=== PATIENT | female | born 1945 | race Hispanic/Latino ===

== ENCOUNTER 2018-05-03 13:03 | Outpatient (CLI) | payer MEDICARE | END 2018-05-03 13:04 | disposition home or self-care (01) | LOC: BICMAMMO 13:03 | PROVIDERS: ATTEND Family Medicine | DX: Z12.31 Encounter for screening mammogram for malignant neoplasm of breast (principal); R92.1 Mammographic calcification found on diagnostic imaging of breast | CPT/HCPCS: 77063; 77067 ==

== ENCOUNTER 2018-06-22 11:15 | Outpatient (CLI) | payer MEDICARE | END 2018-06-22 11:16 | disposition home or self-care (01) | PROVIDERS: ATTEND Internal Medicine | DX: I69.391 Dysphagia following cerebral infarction (principal); R63.3 Feeding difficulties | CPT/HCPCS: 74230; G8996-GN-CK; G8997-GN-CK ==

== ENCOUNTER 2023-06-07 18:31 | Inpatient (IN) | payer OTHER ==
[~2023-06-07 18:31] MED LIST: Iopamidol-370 76% 500 ML MDV (1 ML CHARGE) ONE
[2023-06-07 19:43] LABS: #Eosinphils 0.2 thou/uL (0.0-0.7); #Monocytes 0.7 thou/uL (0.11-0.59); #Neutrophils 5.7 thou/uL (1.40-6.50); %Basophils 0.5 % (0.0-1.0); %Eosinophils 1.8 % (0.0-10.0); %Lymphocytes 21.8 % (21.0-51.0); %Monocytes 8.6 % (0.0-10.0); %Neutrophils 67.2 % (42.0-75.0); Hemoglobin 12.6 g/dL (12.0-16.0); Mean Corpuscular HGB CONC 31.5 g/dL (32.0-36.0); Mean Corpuscular Hemoglobin 29.1 pg (27.0-31.0); Mean Corpuscular Volume 92.4 fl (78.0-98.0); Mean Platelet Volume 11.4 fL (7.4-10.4); Platelet Count 229 10x3/uL (130-400); Red Blood Cell (RBC) Count 4.33 mill/uL (4.20-5.40); White Blood Cell (WBC) Count 8.4 10x3/uL (4.8-10.8)
[2023-06-07 20:06] LABS: ALT (SGPT) 13 U/L (8-55); AST (SGOT) 18 U/L (5-34); Albumin 3.7 g/dL (3.4-4.8); Alkaline Phosphatase 69 U/L (40-110); Anion Gap 14 mmol/L (10-20); BUN (Urea Nitrogen) 18 mg/dL (9.8-20.1); Bilirubin, Total 0.5 mg/dL (0.2-1.2); Calc. Creatinine Clearance 0 mL/min (70-130); Carbon Dioxide 24 mmol/L (23-31); Chloride 106 mmol/L (98-107); Estimated GFR 66; Globulin 2.5 g/dL (2.4-3.5); Glucose 100 mg/dL (83-110); Potassium 4.5 mmol/L (3.5-5.1); Protein, Total 6.2 g/dL (5.8-8.1); Sodium 139 mmol/L (136-145)
[2023-06-07] MEDS ORDERED: Digoxin 0.5 MG/2 ML AMP ONE ×2 (20:08→20:14)
[2023-06-07 20:11] LABS: Troponin I Less than 0.010 ng/mL (< 0.028)
[2023-06-07] MEDS ORDERED: Furosemide 100 MG/10 ML VIAL ONE (21:14)
[2023-06-07] MEDS ORDERED: Furosemide 20 MG/2 ML VIAL ONE (21:15)
[2023-06-07] MEDS ORDERED: Metoprolol Tartrate 5 MG/5 ML VIAL ONE (22:06)
[2023-06-07] MEDS ORDERED: Ondansetron ODT 4 MG TAB PO PRN (22:09)
[2023-06-07] MEDS ORDERED: Acetaminophen 325 MG TAB PO PRN (22:09)
[2023-06-07] MEDS ORDERED: Ondansetron PF 4 MG/2 ML Vial IVP PRN (22:09)
[2023-06-07 23:05] VITALS: BMI 33.5
[2023-06-07] MEDS ORDERED: Amiodarone 150 MG, Admixture Fee 1 EACH in Dextrose 5% in Water 100 ML IVPB SCH (23:15)
[2023-06-08] MEDS: Amiodarone 450 MG in Dextrose 5% in Water 250 ML IVPB SCH ×2 (05:04→12:03)
[2023-06-08] MEDS: Furosemide 20 MG/2 ML VIAL SLOW IVP SCH ×2 (05:52→15:40)
[2023-06-08 07:40] LABS: #Monocytes 0.6 thou/uL (0.11-0.59); #Neutrophils 8.4 thou/uL (1.40-6.50); %Basophils 0.2 % (0.0-1.0); %Eosinophils 0.1 % (0.0-10.0); %Lymphocytes 9.8 % (21.0-51.0); %Monocytes 6.1 % (0.0-10.0); %Neutrophils 82.9 % (42.0-75.0); Hematocrit 42.5 % (36.0-47.0); Hemoglobin 13.4 g/dL (12.0-16.0); Mean Corpuscular HGB CONC 31.5 g/dL (32.0-36.0); Mean Corpuscular Hemoglobin 28.8 pg (27.0-31.0); Mean Corpuscular Volume 91.4 fl (78.0-98.0); Mean Platelet Volume 11.7 fL (7.4-10.4); Platelet Count 234 10x3/uL (130-400); RBC Distribution Width 14.1 % (11.5-14.5); Red Blood Cell (RBC) Count 4.65 mill/uL (4.20-5.40); White Blood Cell (WBC) Count 10.1 10x3/uL (4.8-10.8)
[2023-06-08 08:04] LABS: Anion Gap 16 mmol/L (10-20); BUN (Urea Nitrogen) 18 mg/dL (9.8-20.1); Calc. Creatinine Clearance 69 mL/min (70-130); Carbon Dioxide 26 mmol/L (23-31); Chloride 102 mmol/L (98-107); Estimated GFR 67; Glucose 131 mg/dL (83-110); Potassium 4.4 mmol/L (3.5-5.1); Sodium 140 mmol/L (136-145)
[2023-06-08] MEDS ORDERED: Metoprolol Tartrate 25 MG TAB PO SCH (14:15)
[2023-06-08] MEDS: traMADol HCl 50 MG TAB PO PRN (15:40)
[2023-06-08] MEDS: Gabapentin 300 MG CAP PO SCH (21:20)
[2023-06-08] MEDS: Donepezil HCl 10 MG TAB PO SCH (21:22)
[2023-06-08] MEDS: Metoprolol Tartrate 25 MG TAB PO SCH (21:22)
[2023-06-08] MEDS: Atorvastatin Calcium 40 MG TAB PO SCH (21:22)
[2023-06-09] MEDS: Amiodarone 450 MG in Dextrose 5% in Water 250 ML IVPB SCH ×2 (03:50→18:21)
[2023-06-09 04:10] LABS: #Eosinphils 0.2 thou/uL (0.0-0.7); #Monocytes 0.8 thou/uL (0.11-0.59); #Neutrophils 4.7 thou/uL (1.40-6.50); %Basophils 0.2 % (0.0-1.0); %Eosinophils 2.2 % (0.0-10.0); %Lymphocytes 32.3 % (21.0-51.0); %Monocytes 9.3 % (0.0-10.0); %Neutrophils 55.8 % (42.0-75.0); Hematocrit 39.5 % (36.0-47.0); Hemoglobin 12.6 g/dL (12.0-16.0); Mean Corpuscular HGB CONC 31.9 g/dL (32.0-36.0); Mean Corpuscular Hemoglobin 29.2 pg (27.0-31.0); Mean Corpuscular Volume 91.4 fl (78.0-98.0); Mean Platelet Volume 11.5 fL (7.4-10.4); Platelet Count 222 10x3/uL (130-400); RBC Distribution Width 14.1 % (11.5-14.5); Red Blood Cell (RBC) Count 4.32 mill/uL (4.20-5.40); White Blood Cell (WBC) Count 8.4 10x3/uL (4.8-10.8)
[2023-06-09 04:35] LABS: Anion Gap 14 mmol/L (10-20); BUN (Urea Nitrogen) 18 mg/dL (9.8-20.1); Calc. Creatinine Clearance 60 mL/min (70-130); Calcium 8.4 mg/dL (7.8-10.44); Carbon Dioxide 28 mmol/L (23-31); Chloride 100 mmol/L (98-107); Estimated GFR 58; Glucose 106 mg/dL (83-110); Potassium 3.8 mmol/L (3.5-5.1); Sodium 138 mmol/L (136-145)
[2023-06-09] MEDS: Furosemide 20 MG/2 ML VIAL SLOW IVP SCH ×2 (06:14→14:00)
[2023-06-09] MEDS: Metoprolol Tartrate 25 MG TAB PO SCH ×2 (09:44→23:03)
[2023-06-09] MEDS: DULoxetine 60 MG CAP PO SCH (09:44)
[2023-06-09] MEDS: Clopidogrel Bisulfate 75 MG TAB PO SCH (09:44)
[2023-06-09] MEDS: Atorvastatin Calcium 40 MG TAB PO SCH (23:03)
[2023-06-09] MEDS: Gabapentin 300 MG CAP PO SCH (23:04)
[2023-06-09] MEDS: Donepezil HCl 10 MG TAB PO SCH (23:04)
[2023-06-10] MEDS: Furosemide 20 MG/2 ML VIAL SLOW IVP SCH ×2 (06:04→13:26)
[2023-06-10 08:36] LABS: SARS-CoV-2 NAA Rapid Test Not Detected (NotDetected)
[2023-06-10 09:07] LABS: #Monocytes 0.6 thou/uL (0.11-0.59); #Neutrophils 3.7 thou/uL (1.40-6.50); %Basophils 0.3 % (0.0-1.0); %Eosinophils 0.6 % (0.0-10.0); %Lymphocytes 30.1 % (21.0-51.0); %Monocytes 9.8 % (0.0-10.0); %Neutrophils 58.9 % (42.0-75.0); Hematocrit 40.5 % (36.0-47.0); Hemoglobin 12.9 g/dL (12.0-16.0); Mean Corpuscular HGB CONC 31.9 g/dL (32.0-36.0); Mean Corpuscular Hemoglobin 29.2 pg (27.0-31.0); Mean Corpuscular Volume 91.6 fl (78.0-98.0); Mean Platelet Volume 11.4 fL (7.4-10.4); Platelet Count 220 10x3/uL (130-400); Red Blood Cell (RBC) Count 4.42 mill/uL (4.20-5.40); White Blood Cell (WBC) Count 6.3 10x3/uL (4.8-10.8)
[2023-06-10 09:33] LABS: Anion Gap 11 mmol/L (10-20); BUN (Urea Nitrogen) 17 mg/dL (9.8-20.1); Calc. Creatinine Clearance 60 mL/min (70-130); Calcium 8.9 mg/dL (7.8-10.44); Carbon Dioxide 34 mmol/L (23-31); Chloride 95 mmol/L (98-107); Estimated GFR 56; Glucose 104 mg/dL (83-110); Potassium 4.6 mmol/L (3.5-5.1); Sodium 135 mmol/L (136-145)
[2023-06-10] MEDS: Clopidogrel Bisulfate 75 MG TAB PO SCH (10:04)
[2023-06-10] MEDS: DULoxetine 60 MG CAP PO SCH (10:04)
[2023-06-10] MEDS: Metoprolol Tartrate 25 MG TAB PO SCH ×2 (10:04→20:36)
[2023-06-10] MEDS: Amiodarone 450 MG in Dextrose 5% in Water 250 ML IVPB SCH (10:06)
[2023-06-10 10:23] LABS: Free T4 (Free Thyroxine) 1.11 ng/dL (0.70-1.48)
[2023-06-10 10:24] LABS: Thyroid Stimulating Hormone 1.3696 uIU/mL (0.35-4.94)
[2023-06-10 10:25] LABS: HIV (1/2) Antibody/Antigen Non-Reactive (NonReactive); HIV 1/2 INDEX 0.37 S/CO (<1.00)
[2023-06-10] MEDS: Amiodarone 200 MG TAB PO SCH (20:33)
[2023-06-10] MEDS: Gabapentin 300 MG CAP PO SCH (20:34)
[2023-06-10] MEDS: Atorvastatin Calcium 40 MG TAB PO SCH (20:34)
[2023-06-10] MEDS: Apixaban 5 MG TAB PO SCH (20:35)
[2023-06-10] MEDS: Donepezil HCl 10 MG TAB PO SCH (20:35)
[2023-06-10] MEDS: traMADol HCl 50 MG TAB PO PRN (20:35)
[2023-06-11] MEDS: Furosemide 20 MG/2 ML VIAL SLOW IVP SCH (05:37)
[2023-06-11] MEDS: Metoprolol Tartrate 25 MG TAB PO SCH (08:18)
[2023-06-11] MEDS: Clopidogrel Bisulfate 75 MG TAB PO SCH (08:18)
[2023-06-11] MEDS: DULoxetine 60 MG CAP PO SCH (08:18)
[2023-06-11] MEDS: Amiodarone 200 MG TAB PO SCH (08:18)
[2023-06-11] MEDS: Apixaban 5 MG TAB PO SCH (08:18)
[2023-06-11] MEDS: traMADol HCl 50 MG TAB PO PRN (11:23)
[2023-06-11 14:20] VITALS: BP 132/63; TEMP 97.8
== END 2023-06-11 13:32 | disposition home or self-care (01) | DRG 291 ==
LOC: ERS 18:31 → ERHOLD 22:07 → 2NO 06-08 03:59 → OBSVTOIN 06-08 17:20
PROVIDERS: ADMIT Internal Medicine; ATTEND Family Medicine
PROC: 5A2204Z Restoration of Cardiac Rhythm, Single (ICD-10-PCS; principal; 2023-06-10)
DX: I11.0 Hypertensive heart disease with heart failure (principal); I50.43 Acute on chronic combined systolic (congestive) and diastolic (congestive) heart failure; I48.91 Unspecified atrial fibrillation; E78.5 Hyperlipidemia, unspecified; I25.10 Atherosclerotic heart disease of native coronary artery without angina pectoris; F39 Unspecified mood [affective] disorder; I42.0 Dilated cardiomyopathy; G89.29 Other chronic pain; R91.8 Other nonspecific abnormal finding of lung field; Z20.822 Contact with and (suspected) exposure to COVID-19; Z90.710 Acquired absence of both cervix and uterus; Z98.890 Other specified postprocedural states; Z95.828 Presence of other vascular implants and grafts
CPT/HCPCS: 36415; 71045; 71275; 80048; 80053; 83735; 83880; 84439; 84443; 84481; 84484; 85025; 86618; 87040; 87389; 92960; 93005; 93010; 93306; 93312; 96372; 96374; 96375; 96376; G0378; J0282; J1160; J1650; J1940; J2405; J7070; Q0162; Q9967

== ENCOUNTER → 2023-09-27 | Day surgery (SDC) | payer OTHER ==
[2023-09-24 11:10] VITALS: BMI 35.0
[~2023-09-27] MED LIST changes: -Iopamidol-370 76% 500 ML MDV (1 ML CHARGE) ONE; +PROPOFOL 200 MG/20 ML VIAL ONE
[2023-09-27 11:21] LABS: #Eosinphils 0.1 thou/uL (0.0-0.7); #Monocytes 0.5 thou/uL (0.11-0.59); #Neutrophils 3.3 thou/uL (1.40-6.50); %Basophils 0.2 % (0.0-1.0); %Eosinophils 1.3 % (0.0-10.0); %Lymphocytes 27.1 % (21.0-51.0); %Monocytes 9.3 % (0.0-10.0); %Neutrophils 61.9 % (42.0-75.0); Hematocrit 40.1 % (36.0-47.0); Hemoglobin 12.2 g/dL (12.0-16.0); Mean Corpuscular HGB CONC 30.4 g/dL (32.0-36.0); Mean Corpuscular Hemoglobin 25.9 pg (27.0-31.0); Mean Corpuscular Volume 85.1 fl (78.0-98.0); Mean Platelet Volume 11.4 fL (7.4-10.4); Platelet Count 231 10x3/uL (130-400); RBC Distribution Width 14.8 % (11.5-14.5); Red Blood Cell (RBC) Count 4.71 mill/uL (4.20-5.40); White Blood Cell (WBC) Count 5.4 10x3/uL (4.8-10.8)
[2023-09-27 11:42] LABS: Anion Gap 10 mmol/L (10-20); BUN (Urea Nitrogen) 28 mg/dL (9.8-20.1); Calc. Creatinine Clearance 49 mL/min (70-130); Calcium 8.9 mg/dL (7.8-10.44); Carbon Dioxide 36 mmol/L (23-31); Chloride 97 mmol/L (98-107); Estimated GFR 41; Glucose 101 mg/dL (83-110); Potassium 3.9 mmol/L (3.5-5.1); Sodium 139 mmol/L (136-145)
[2023-09-27 11:44] LABS: INR-International Normal Ratio 1.4; Prothrombin Time 17.6 sec (12.0-14.7)
[2023-09-27 11:45] LABS: PTT 39.3 sec (22.9-36.1)
== END ==
LOC: SDC 09:55
PROVIDERS: ATTEND Internal Medicine Cardiovascular Disease
PROC: 5A2204Z Restoration of Cardiac Rhythm, Single (ICD-10-PCS; principal; 2023-09-27)
DX: I48.19 Other persistent atrial fibrillation (principal); I25.10 Atherosclerotic heart disease of native coronary artery without angina pectoris; I35.0 Nonrheumatic aortic (valve) stenosis; I10 Essential (primary) hypertension; I25.2 Old myocardial infarction; Z87.891 Personal history of nicotine dependence; Z88.6 Allergy status to analgesic agent; Z88.8 Allergy status to other drugs, medicaments and biological substances; Z90.710 Acquired absence of both cervix and uterus
CPT/HCPCS: 80048; 85025; 85610; 85730; 92960; 93005; 93010; J2704

== ENCOUNTER 2024-01-11 18:50 | Inpatient (IN) | payer MEDICARE, OTHER ==
[2024-01-11 19:33] LABS: #Basophils Less than 0.03 10x3/uL (0.0-0.2); #Eosinphils Less than 0.03 10x3/uL (0.0-0.7); %Basophils 0.1 % (0.0-1.0); %Eosinophils 0.2 % (0.0-10.0); %Lymphocytes 11.4 % (21.0-51.0); %Monocytes 9.3 % (0.0-10.0); %Neutrophils 78.6 % (42.0-75.0); Hematocrit 19.7 % (36.0-47.0); Hemoglobin 6.1 g/dL (12.0-16.0); Mean Corpuscular Hemoglobin 25.7 pg (27.0-31.0); Mean Corpuscular Volume 83.1 fL (78.0-98.0); Mean Platelet Volume 10.6 fL (7.4-10.4); Platelet Count 359 10x3/uL (130-400); RBC Distribution Width 18.1 % (11.5-14.5); Red Blood Cell (RBC) Count 2.37 mill/uL (4.20-5.40)
[2024-01-11 19:47] LABS: ALT (SGPT) 12 U/L (8-55); AST (SGOT) 18 U/L (5-34); Albumin 3.2 g/dL (3.4-4.8); Alkaline Phosphatase 57 U/L (40-110); Anion Gap 16 mmol/L (10-20); BUN (Urea Nitrogen) 18 mg/dL (9.8-20.1); Bilirubin, Total 0.5 mg/dL (0.2-1.2); Calc. Creatinine Clearance 0 mL/min (70-130); Calcium 8.6 mg/dL (7.8-10.44); Carbon Dioxide 20 mmol/L (23-31); Chloride 105 mmol/L (98-107); Estimated GFR 65; Globulin 3.1 g/dL (2.4-3.5); Glucose 116 mg/dL (83-110); Lipase 13 U/L (8-78); Potassium 4.4 mmol/L (3.5-5.1); Protein, Total 6.3 g/dL (5.8-8.1); Sodium 137 mmol/L (136-145)
[2024-01-11 19:53] LABS: Troponin I 0.051 ng/mL (< 0.028)
[2024-01-11] MEDS ORDERED: Pantoprazole 40 MG VIAL ONE (20:03)
[2024-01-11] MEDS ORDERED: Furosemide 20 MG (2 mL) VIAL ONE (20:30)
[2024-01-11] MEDS ORDERED: Ondansetron ODT 4 MG TAB SL PRN (21:45)
[2024-01-11] MEDS ORDERED: Pantoprazole 80 MG, Admixture Fee 1 EACH in Sodium Chloride 0.9% 100 ML IVPB SCH (21:45)
[2024-01-11] MEDS ORDERED: Ondansetron PF 4 MG/2 ML Vial IVP PRN (21:45)
[2024-01-11 21:56] LABS: Bacteria/HPF 1+ HPF (None Seen); Bilirubin Negative (Negative); Blood, Urine Trace (Negative); CAUTI Indications for Culture Pelvic or flank pain; Clarity Clear (Clear); Glucose, Urine (Dipstick) Normal (Negative); Ketone, Urine Negative (Negative); Leukocyte 250 Leu/uL (Negative); Nitrite Negative (Negative); Protein, Urine (Dipstick) Negative (Neg-Trace); RBC/HPF 0-3 HPF (0-3); Squamous Epithelial 0-3 HPF (0-3); Urobilinogen Normal mg/dL (Less than 2)
[2024-01-11 21:57] LABS: Urine Culture Reflex Yes Yes
[2024-01-11 22:01] VITALS: BMI 30.9
[2024-01-11] MEDS ORDERED: Acetaminophen 650 MG Suppository PR PRN (22:11)
[2024-01-12 01:18] LABS: Troponin I 0.067 ng/mL (< 0.028)
[2024-01-12 04:04] LABS: #Basophils Less than 0.03 10x3/uL (0.0-0.2); %Basophils 0.1 % (0.0-1.0); %Eosinophils 0.4 % (0.0-10.0); %Lymphocytes 16.9 % (21.0-51.0); %Neutrophils 72.2 % (42.0-75.0); Hematocrit 21.4 % (36.0-47.0); Hemoglobin 6.9 g/dL (12.0-16.0); Mean Corpuscular HGB CONC 32.2 g/dL (32.0-36.0); Mean Corpuscular Hemoglobin 26.8 pg (27.0-31.0); Mean Corpuscular Volume 83.3 fL (78.0-98.0); Mean Platelet Volume 10.8 fL (7.4-10.4); Platelet Count 308 10x3/uL (130-400); RBC Distribution Width 17.6 % (11.5-14.5); Red Blood Cell (RBC) Count 2.57 mill/uL (4.20-5.40)
[2024-01-12 04:25] LABS: Troponin I 0.107 ng/mL (< 0.028)
[2024-01-12 04:26] LABS: Anion Gap 14 mmol/L (10-20); BUN (Urea Nitrogen) 18 mg/dL (9.8-20.1); Calc. Creatinine Clearance 60 mL/min (70-130); Calcium 8.6 mg/dL (7.8-10.44); Carbon Dioxide 25 mmol/L (23-31); Chloride 105 mmol/L (98-107); Estimated GFR 61; Glucose 104 mg/dL (83-110); Sodium 140 mmol/L (136-145)
[2024-01-12 08:04] VITALS: BMI 30.9
[2024-01-12] MEDS: Pantoprazole 40 MG VIAL IVP SCH (09:32)
[2024-01-12 10:32] LABS: Hematocrit 23.2 % (36.0-47.0); Hemoglobin 7.5 g/dL (12.0-16.0)
[2024-01-12] MEDS ORDERED: Lidocaine 1% PF 5 ML VIAL ONE (13:58)
[2024-01-12] MEDS ORDERED: PROPOFOL 40 ML ONE (14:02)
[2024-01-12] MEDS: Acetaminophen 325 MG TAB PO PRN (16:31)
[2024-01-12 17:39] LABS: Hematocrit 25.4 % (36.0-47.0); Hemoglobin 8.1 g/dL (12.0-16.0)
[2024-01-12] MEDS: traMADol HCl 50 MG TAB PO PRN (20:42)
[2024-01-12] MEDS: Amiodarone 200 MG TAB PO SCH (20:46)
[2024-01-12] MEDS: Gabapentin 300 MG CAP PO SCH (20:46)
[2024-01-12] MEDS: Atorvastatin Calcium 40 MG TAB PO SCH (20:46)
[2024-01-13 00:13] LABS: Hematocrit 24.9 % (36.0-47.0); Hemoglobin 8.1 g/dL (12.0-16.0)
[2024-01-13 05:10] LABS: Hematocrit 23.8 % (36.0-47.0); Hemoglobin 7.5 g/dL (12.0-16.0)
[2024-01-13] MEDS ORDERED: Furosemide 40 MG TAB PO PRN (08:01)
[2024-01-13] MEDS: Lisinopril 5 MG TAB PO SCH (09:31)
[2024-01-13 16:00] LABS: Hematocrit 24.2 % (36.0-47.0); Hemoglobin 7.5 g/dL (12.0-16.0)
[2024-01-14 00:06] LABS: Hematocrit 23.2 % (36.0-47.0); Hemoglobin 7.1 g/dL (12.0-16.0)
[2024-01-14 09:34] LABS: Hematocrit 27.5 % (36.0-47.0); Hemoglobin 8.7 g/dL (12.0-16.0)
[2024-01-15 06:22] LABS: #Basophils Less than 0.03 10x3/uL (0.0-0.2); %Basophils 0.1 % (0.0-1.0); %Eosinophils 2.6 % (0.0-10.0); %Lymphocytes 15.5 % (21.0-51.0); %Monocytes 11.1 % (0.0-10.0); %Neutrophils 70.2 % (42.0-75.0); Hematocrit 28.4 % (36.0-47.0); Hemoglobin 8.9 g/dL (12.0-16.0); Mean Corpuscular HGB CONC 31.3 g/dL (32.0-36.0); Mean Corpuscular Hemoglobin 27.2 pg (27.0-31.0); Mean Corpuscular Volume 86.9 fL (78.0-98.0); Mean Platelet Volume 10.7 fL (7.4-10.4); Platelet Count 256 10x3/uL (130-400); RBC Distribution Width 17.8 % (11.5-14.5); Red Blood Cell (RBC) Count 3.27 mill/uL (4.20-5.40)
[2024-01-15 11:39] VITALS: BP 116/56; TEMP 97.7
== END 2024-01-15 14:48 | disposition home or self-care (01) | DRG 377 ==
LOC: ERS 18:50 → 2NO 20:52
PROVIDERS: ADMIT Student in an Organized Health Care Education/Training Program; ATTEND Internal Medicine
PROC: 30233N1 Transfusion of Nonautologous Red Blood Cells into Peripheral Vein, Percutaneous Approach (ICD-10-PCS; 2024-01-11)
PROC: 0W3P8ZZ Control Bleeding in Gastrointestinal Tract, Via Natural or Artificial Opening Endoscopic (ICD-10-PCS; principal; 2024-01-12)
DX: K31.811 Angiodysplasia of stomach and duodenum with bleeding (principal); I21.A1 Myocardial infarction type 2; J96.01 Acute respiratory failure with hypoxia; K76.7 Hepatorenal syndrome; D62 Acute posthemorrhagic anemia; I10 Essential (primary) hypertension; E78.5 Hyperlipidemia, unspecified; Z88.8 Allergy status to other drugs, medicaments and biological substances; Z88.6 Allergy status to analgesic agent; Z79.01 Long term (current) use of anticoagulants; Z79.899 Other long term (current) drug therapy; Z79.02 Long term (current) use of antithrombotics/antiplatelets; Z95.5 Presence of coronary angioplasty implant and graft; Z90.710 Acquired absence of both cervix and uterus; I35.0 Nonrheumatic aortic (valve) stenosis; I48.0 Paroxysmal atrial fibrillation
CPT/HCPCS: 36415; 36430; 71045; 80048; 80053; 81001; 82274; 83690; 83880; 84484; 85014; 85018; 85025; 86850; 86900; 86901; 87086; 93005; 96374; 96375; C9113; J1940; J2704; P9016

== ENCOUNTER 2024-01-26 14:38 | Outpatient (CLI) | payer OTHER ==
[2024-01-26 16:18] LABS: #Basophils 0.03 10x3/uL (0.0-0.2); #Eosinphils 0.06 10x3/uL (0.0-0.5); #Monocytes 0.56 10x3/uL (0.0-1.1); #Neutrophils 3.59 10x3/uL (1.5-8.4); %Basophils 0.5 % (0.0-2.0); %Eosinophils 1.1 % (0.0-6.0); %Lymphocytes 25.6 % (18.0-47.0); %Monocytes 9.8 % (0.0-10.0); %Neutrophils 62.8 % (40.0-75.0); Hematocrit 31.2 % (34.9-44.5); Hemoglobin 9.4 g/dL (12.0-15.5); Mean Corpuscular HGB CONC 30.1 g/dL (32.0-36.0); Mean Corpuscular Hemoglobin 25.5 pg (27.0-33.0); Mean Corpuscular Volume 84.6 fL (81.6-98.3); Mean Platelet Volume 11.2 fL (7.4-10.4); Platelet Count 329 10x3/uL (150-450); RBC Distribution Width 18.4 % (11.5-14.5); Red Blood Cell (RBC) Count 3.69 10x6/uL (3.90-5.03); White Blood Cell (WBC) Count 5.7 10x3/uL (3.5-10.5)
[2024-01-26 16:57] LABS: ALT (SGPT) 22 U/L (8-55); AST (SGOT) 26 U/L (5-34); Albumin 3.4 g/dL (3.4-4.8); Alkaline Phosphatase 68 U/L (40-110); Anion Gap 11 mmol/L (10-20); BUN (Urea Nitrogen) 15 mg/dL (9.8-20.1); Bilirubin, Direct 0.3 mg/dL (0.1-0.3); Bilirubin, Total 0.6 mg/dL (0.2-1.2); Calc. Creatinine Clearance 0 mL/min (70-130); Calcium 8.9 mg/dL (7.8-10.44); Carbon Dioxide 30 mmol/L (23-31); Chloride 103 mmol/L (98-107); Estimated GFR 53; Globulin 2.9 g/dL (2.4-3.5); Glucose 82 mg/dL (83-110); Potassium 4.4 mmol/L (3.5-5.1); Protein, Total 6.3 g/dL (5.8-8.1); Sodium 140 mmol/L (136-145)
== END 2024-01-26 14:39 | disposition home or self-care (01) ==
LOC: LABBT 14:38
PROVIDERS: ATTEND Internal Medicine Cardiovascular Disease
DX: Z01.812 Encounter for preprocedural laboratory examination (principal)
CPT/HCPCS: 80053; 80076; 85025

== ENCOUNTER 2024-01-28 06:31 | Inpatient (IN) | payer OTHER ==
[2024-01-28] MEDS ORDERED: Nitroglycerin 50 MG/250 ML BOT 0 ML ONE (08:03)
[2024-01-28] MEDS ORDERED: Heparin 10,000 UNITS/ 10 ML VIAL ONE (08:03)
[2024-01-28 08:26] LABS: Cardiac Risk 2.8 (Less than 4.5)
[2024-01-28] MEDS ORDERED: Midazolam HCl 2 mg/2 ml Vial ONE (08:35)
[2024-01-28] MEDS ORDERED: fentaNYL 50 mcg/mL 1 mL Vial ONE (08:35)
[2024-01-28] MEDS ORDERED: Iopamidol 370 76% 100 ML VIAL ONE (10:02)
[2024-01-28] MEDS ORDERED: Furosemide 20 MG (2 mL) VIAL ONE (10:43)
[2024-01-28] MEDS ORDERED: Nitroglycerin 0.4 MG TAB (25 Tab Bottle) SL PRN (13:04)
[2024-01-28] MEDS ORDERED: Sodium Chloride 0.9% 200 ML IV PRN (13:04)
[2024-01-28] MEDS: Acetaminophen/Codeine 30-300mg Tablet PO PRN (21:20)
[2024-01-29] MEDS: Furosemide 40 MG TAB PO SCH (09:09)
[2024-01-29] MEDS: Lisinopril 5 MG TAB PO SCH (09:09)
[2024-01-29] MEDS: Amiodarone 200 MG TAB PO SCH (09:09)
[2024-01-29] MEDS: Pantoprazole DR 40 MG TAB PO SCH (09:10)
[2024-01-29] MEDS: traMADol HCl 50 MG TAB PO PRN (09:10)
[2024-01-29 10:24] VITALS: BP 116/60
[2024-01-29 10:43] LABS: #Basophils Less than 0.03 10x3/uL (0.0-0.2); #Eosinphils Less than 0.03 10x3/uL (0.0-0.7); %Basophils 0.1 % (0.0-1.0); %Eosinophils 0.2 % (0.0-10.0); %Monocytes 7.7 % (0.0-10.0); %Neutrophils 85.6 % (42.0-75.0); Hematocrit 30.8 % (36.0-47.0); Hemoglobin 9.1 g/dL (12.0-16.0); Mean Corpuscular HGB CONC 29.5 g/dL (32.0-36.0); Mean Corpuscular Hemoglobin 25.3 pg (27.0-31.0); Mean Corpuscular Volume 85.6 fL (78.0-98.0); Mean Platelet Volume 10.6 fL (7.4-10.4); Platelet Count 320 10x3/uL (130-400); RBC Distribution Width 18.1 % (11.5-14.5)
[2024-01-29 10:53] LABS: Anion Gap 13 mmol/L (10-20); BUN (Urea Nitrogen) 13 mg/dL (9.8-20.1); Calc. Creatinine Clearance 70 mL/min (70-130); Calcium 8.5 mg/dL (7.8-10.44); Carbon Dioxide 28 mmol/L (23-31); Chloride 102 mmol/L (98-107); Estimated GFR 75; Glucose 115 mg/dL (83-110); Magnesium 1.8 mg/dL (1.6-2.6); Potassium 4.3 mmol/L (3.5-5.1); Sodium 139 mmol/L (136-145)
[2024-01-29] MEDS: Magnesium Sulfate In Water 4 GM in Premix 1 BAG IVPB SCH ×2 (11:16→18:00)
[2024-01-29 11:22] LABS: Free T4 (Free Thyroxine) 1.54 ng/dL (0.70-1.48); Thyroid Stimulating Hormone 0.7738 uIU/mL (0.35-4.94)
[2024-01-29] MEDS: NOREPINEPHRINE 8 MG/250 ML-D5W 250 ML ONE (16:00)
[2024-01-29] MEDS ORDERED: Magnesium 5 GM/10 ML Abboject SYRINGE ONE (17:55)
[2024-01-29] MEDS ORDERED: NOREPINEPHRINE 8 MG/250 ML-D5W 250 ML IVPB SCH (19:30)
[2024-01-29] MEDS: Atorvastatin Calcium 40 MG TAB PO SCH (20:29)
[2024-01-29 20:40] VITALS: TEMP 98
[2024-01-29] MEDS ORDERED: Gabapentin 300 MG CAP PO SCH (21:00)
== END 2024-01-30 02:00 | disposition short-term general hospital (02) | DRG 287 ==
LOC: CCL 06:31 → CCU 12:56
PROVIDERS: ADMIT Internal Medicine Cardiovascular Disease; ATTEND Internal Medicine Cardiovascular Disease
PROC: 4A023N8 Measurement of Cardiac Sampling and Pressure, Bilateral, Percutaneous Approach (ICD-10-PCS; principal; 2024-01-28)
PROC: B211YZZ Fluoroscopy of Multiple Coronary Arteries using Other Contrast (ICD-10-PCS; 2024-01-28)
PROC: B215YZZ Fluoroscopy of Left Heart using Other Contrast (ICD-10-PCS; 2024-01-28)
DX: I35.0 Nonrheumatic aortic (valve) stenosis (principal); I47.21 Torsades de pointes; I10 Essential (primary) hypertension; E78.5 Hyperlipidemia, unspecified; I25.10 Atherosclerotic heart disease of native coronary artery without angina pectoris; I48.91 Unspecified atrial fibrillation; I73.9 Peripheral vascular disease, unspecified; M19.90 Unspecified osteoarthritis, unspecified site; F32.A Depression, unspecified; I27.20 Pulmonary hypertension, unspecified; R94.31 Abnormal electrocardiogram [ECG] [EKG]; I25.2 Old myocardial infarction; Z98.42 Cataract extraction status, left eye; Z98.41 Cataract extraction status, right eye; Z90.710 Acquired absence of both cervix and uterus; Z79.899 Other long term (current) drug therapy; Z87.891 Personal history of nicotine dependence
CPT/HCPCS: 71045; 80048; 80061; 83735; 83880; 84100; 84439; 84443; 84481; 85025; 85347; 93005; 93010; 93306; 93460; 94660; 94760; 99152; 99153; C1751; C1769; C1894; J1644; J1940; J2250; J3010; J3475; Q9967

== ENCOUNTER 2024-09-27 12:39 | Outpatient (CLI) | payer OTHER ==
[2024-09-27 14:01] LABS: #Basophils Less than 0.03 10x3/uL (0.0-0.2); %Basophils 0.3 % (0.0-1.0); %Eosinophils 0.7 % (0.0-10.0); %Lymphocytes 17.6 % (21.0-51.0); %Monocytes 6.8 % (0.0-10.0); %Neutrophils 74.3 % (42.0-75.0); Hematocrit 35.4 % (36.0-47.0); Hemoglobin 10.6 g/dL (12.0-16.0); Mean Corpuscular HGB CONC 29.9 g/dL (32.0-36.0); Mean Corpuscular Hemoglobin 23.8 pg (27.0-31.0); Mean Corpuscular Volume 79.6 fL (78.0-98.0); Mean Platelet Volume 11.7 fL (7.4-10.4); Platelet Count 219 10x3/uL (130-400); RBC Distribution Width 15.6 % (11.5-14.5); Red Blood Cell (RBC) Count 4.45 mill/uL (4.20-5.40)
[2024-09-27 14:30] LABS: ALT (SGPT) 11 U/L (Less than 34); AST (SGOT) 27 U/L (11-34); Albumin 3.4 g/dL (3.1-4.5); Alkaline Phosphatase 78 U/L (40-110); Anion Gap 15 mmol/L (10-20); BUN (Urea Nitrogen) 26 mg/dL (9.8-20.1); Bilirubin, Total 0.4 mg/dL (0.3-1.2); Calc. Creatinine Clearance 0 mL/min (70-130); Calcium 8.8 mg/dL (7.8-10.44); Carbon Dioxide 32 mmol/L (23-31); Chloride 101 mmol/L (98-107); Estimated GFR 52; Globulin 3.3 g/dL (2.4-3.5); Glucose 111 mg/dL (83-110); Potassium 4.1 mmol/L (3.5-5.1); Protein, Total 6.7 g/dL (5.8-8.1); Sodium 144 mmol/L (136-145)
[2024-09-27 14:39] LABS: Prothrombin Time 13.6 sec (12.0-14.7)
== END 2024-09-27 12:40 | disposition home or self-care (01) ==
LOC: LABBT 12:39
PROVIDERS: ATTEND Internal Medicine Cardiovascular Disease
DX: Z01.818 Encounter for other preprocedural examination (principal); I48.19 Other persistent atrial fibrillation; K92.2 Gastrointestinal hemorrhage, unspecified
CPT/HCPCS: 80053; 85025; 85610; 85730; 86850; 86900; 86901; 93005; 93010